=== PATIENT | female | born 1955 ===

== ENCOUNTER → 2022-09-08 12:40 | Outpatient (CLI) | payer OTHER, SELFPAY ==
[2022-09-08 14:22] LABS: Calcium 10.7 mg/dL (8.4-10.2); Estimated Glomerular Filt Rate > 60 mL/min (>60)
[2022-09-10 07:30] LABS: Parathyroid Hormone Int 91 pg/mL (15-65)
== END ==
PROVIDERS: PCP Family Medicine; Referring Provider Internal Medicine Endocrinology, Diabetes & Metabolism; Visit Provider Internal Medicine Endocrinology, Diabetes & Metabolism
DX: E21.3 Hyperparathyroidism, unspecified (principal)
CPT/HCPCS: 36415; 82310; 82565; 83970

== ENCOUNTER → 2022-09-10 11:26 | Outpatient (ROUT) | payer OTHER, SELFPAY ==
[2022-09-10 13:58] LABS: Collection Time Urine 24 Hours; Creatinine 24 Hour Urine 738 mg/day (800-1800); Creatinine Urine Random 56.8 mg/dL; Total Volume Urine 1300 mL
[2022-09-10 14:20] LABS: Calcium 24 Hour Urine 313 mg/day (100-300); Calcium Urine Random 24.1 mg/dL; Collection Time Urine 24 Hours; Total Volume Urine 1300 mL
== END ==
PROVIDERS: PCP Family Medicine; Visit Provider Internal Medicine Endocrinology, Diabetes & Metabolism
DX: E21.3 Hyperparathyroidism, unspecified (principal)
CPT/HCPCS: 82340; 82570

== ENCOUNTER → 2022-09-19 12:55 | Outpatient (CLI) | payer OTHER, SELFPAY ==
[2022-09-19 17:11] LABS: Thyroid Stimulating Hormone 0.326 uIU/mL (0.47-4.68)
== END ==
PROVIDERS: PCP Family Medicine; Referring Provider Internal Medicine Endocrinology, Diabetes & Metabolism; Visit Provider Internal Medicine Endocrinology, Diabetes & Metabolism
DX: E03.9 Hypothyroidism, unspecified (principal)
CPT/HCPCS: 36415; 84443

== ENCOUNTER 2023-04-26 05:11 | Emergency (ER) | payer OTHER, SELFPAY ==
[2023-04-26 05:26] VITALS: BP 135/83; PULSE 88; RESP 16; TEMP 36.2; O2SAT 95; BMI 31.7
--- NOTE | 2023-04-26 05:27 | ED.RECABL ---
HPI - Recheck/Abnormal Lab/Rx <Kathleen Riley DO - Last Filed: 04/28/23 07:29> General Chief Complaint: Recheck/Abnormal Lab/Rx Stated Complaint: neck area is swollen where she had surgery Time Seen by Provider: 04/26/23 05:18 History of Present Illness HPI narrative: Patient 67-year-old female history of hyperparathyroid presents today after parathyroidectomy done yesterday. It was done at an outpatient [place] facility. She reports that it hurts to swallow and having increasing pain and swelling. She is able to breathe and she is managing her own secretions. She took pain medicine last night but has not had any since she is woken. She reports that she really has not gotten much sleep. She says the anesthesia gave her steroids intraoperative lead to help with swelling but she feels like her neck is swollen and painful. Related Data Home Medications Medication Instructions Recorded Confirmed acetaminophen 500 mg tablet 1,000 mg PO BID PRN 11/22/22 03/03/23 bupropion HCl 100 mg tablet,12 hr 100 mg PO BEDTIME 11/22/22 03/03/23 sustained-release gabapentin 100 mg capsule 100 mg PO BID PRN 11/22/22 03/03/23 levothyroxine 100 mcg tablet 100 mcg PO DAILY 11/22/22 03/03/23 estradiol 10 mcg vaginal tablet 10 mcg vaginal 2XW 03/03/23 03/03/23 (Yuvafem) Allergies Allergy/AdvReac Type Severity Reaction Status Date / Time ciprofloxacin Allergy Intermediate Rash Verified 03/03/23 13:53 Penicillins Allergy Intermediate Hives Verified 03/03/23 13:53 Sulfa (Sulfonamide Allergy Intermediate Rash Verified 03/03/23 13:53 Antibiotics) betamethasone Allergy Mild Anxiety Verified 03/03/23 13:53 hydrocodone Allergy Mild Gastrointestinal Verified 03/03/23 13:53 Upset meloxicam Allergy Mild Gastrointestinal Verified 03/03/23 13:53 Upset sertraline Allergy Mild Nausea Verified 03/03/23 13:53 Patient History <Kathleen Riley DO - Last Filed: 04/28/23 07:29> Medical History Spinal stenosis, lumbar region with neurogenic claudication Tear meniscus knee Spondylolisthesis Spinal stenosis Depression Hypothyroidism Hyperparathyroidism High cholesterol Cervical disc disorder Arthritis Osteoporosis Surgical History Hx of appendectomy History of hernia surgery H/O knee surgery Social History Smoking Status: Former smoker Smoking Status: Former smoker Exam <Kathleen Riley DO - Last Filed: 04/28/23 07:29> Initial Vital Signs Initial Vital Signs: Vital Signs Temperature 97.1 F L 04/26/23 05:26 Pulse Rate 88 04/26/23 05:26 Respiratory Rate 16 04/26/23 05:26 Blood Pressure 135/83 04/26/23 05:26 Pulse Oximetry 95 04/26/23 05:26 Oxygen Delivery Method Room Air 04/26/23 05:26 GENERAL: Alert sleepy 67-year-old female HEENT: Head atraumatic,EOMI, pupils reactive, managing secretions with ease NECK: Incision site noted with Steri-Strips no erythema or oozing. She does have significant contusion anterior neck she is a little bit of swelling. Moving neck easily no evidence of meningitis CARDIOVASCULAR: Regular rate and rhythm without murmurs, rubs or gallops. RESPIRATORY: Breath sounds equal bilaterally, no wheezes rales or rhonchi. No stridor ABDOMEN: Soft, nontender. Normoactive bowel sounds all 4 quadrants. No guarding or rebound. EXTREMITIES: Normal range of motion, no clubbing or edema. Neurovascularly intact NEUROLOGICAL: Alert and oriented x4.Normal gait and speech. SKIN: Warm, dry, no laceration, no petechiae, no rashes or lesions. <An Pickard MD - Last Filed: 04/26/23 09:34> Initial Vital Signs Initial Vital Signs: Vital Signs Temperature 97.1 F L 04/26/23 05:26 Pulse Rate 88 04/26/23 05:26 Respiratory Rate 16 04/26/23 05:26 Blood Pressure 135/83 04/26/23 05:26 Pulse Oximetry 95 04/26/23 05:26 Oxygen Delivery Method Room Air 04/26/23 05:26 Course <Kathleen Riley DO - Last Filed: 04/28/23 07:29> Orders Ordered: Discontinued Medications Dexamethasone (Dexamethasone 10 Mg/Ml Vial) 10 mg IV NOW ONE Stop: 04/26/23 05:40 Last Admin: 04/26/23 05:50 Dose: 10 mg Documented By: NASIM Sodium Chloride (Normal Saline 0.9%) 1,000 mls @ 1,000 mls/hr IV BOLUS ONE Stop: 04/26/23 06:38 Last Infusion: 04/26/23 06:55 Dose: Infused Documented By: Admin: 04/26/23 05:49 Dose: 1,000 mls/hr Documented By: NASIM Acetaminophen (Ofirmev) 1,000 mg in 100 mls @ 400 mls/hr IV NOW ONE Stop: 04/26/23 07:03 Last Infusion: 04/26/23 07:15 Dose: Infused Documented By: Admin: 04/26/23 07:01 Dose: 400 mls/hr Documented By: NASIM Morphine Sulfate (Morphine 2 Mg/Ml Inj) 2 mg IV NOW ONE Stop: 04/26/23 05:40 Last Admin: 04/26/23 05:49 Dose: 2 mg Documented By: NASIM Ondansetron HCl (Ondansetron 4 Mg/2 Ml Inj) 4 mg IV NOW ONE Stop: 04/26/23 05:42 Last Admin: 04/26/23 05:50 Dose: 4 mg Documented By: NASIM Vital Signs Vital signs: Vital Signs - 8 hr 04/26/23 05:26 04/26/23 06:29 04/26/23 06:30 Temperature 97.1 F L Pulse Rate 88 76 77 Respiratory Rate 16 18 18 Blood Pressure 135/83 Pulse Oximetry 95 98 98 Oxygen Delivery Method Room Air 04/26/23 07:00 Temperature Pulse Rate 81 Respiratory Rate 18 Blood Pressure Pulse Oximetry 98 Oxygen Delivery Method <An Pickard MD - Last Filed: 04/26/23 09:34> Orders Ordered: Discontinued Medications Dexamethasone (Dexamethasone 10 Mg/Ml Vial) 10 mg IV NOW ONE Stop: 04/26/23 05:40 Last Admin: 04/26/23 05:50 Dose: 10 mg Documented By: NASIM Sodium Chloride (Normal Saline 0.9%) 1,000 mls @ 1,000 mls/hr IV BOLUS ONE Stop: 04/26/23 06:38 Last Infusion: 04/26/23 06:55 Dose: Infused Documented By: Admin: 04/26/23 05:49 Dose: 1,000 mls/hr Documented By: NASIM Acetaminophen (Ofirmev) 1,000 mg in 100 mls @ 400 mls/hr IV NOW ONE Stop: 04/26/23 07:03 Last Infusion: 04/26/23 07:15 Dose: Infused Documented By: Admin: 04/26/23 07:01 Dose: 400 mls/hr Documented By: NASIM Morphine Sulfate (Morphine 2 Mg/Ml Inj) 2 mg IV NOW ONE Stop: 04/26/23 05:40 Last Admin: 04/26/23 05:49 Dose: 2 mg Documented By: NASIM Ondansetron HCl (Ondansetron 4 Mg/2 Ml Inj) 4 mg IV NOW ONE Stop: 04/26/23 05:42 Last Admin: 04/26/23 05:50 Dose: 4 mg Documented By: NASIM Reevaluation(s) Reevaluation #1: Patient signed out to me by Dr. Riley at 0700. Patient resting comfortably in bed, swallowing water without any difficulty, no drooling, no pooling of secretions, voice normal per patient. CT imaging shows hematoma of the neck. Mild airway deviation noted. Call placed to patient's surgeon Dr. Ita Bullock, who personally reviewed the images. Patient's hematoma is superficial, however due to the size and anticipated length of healing she stated that she would take the patient to the OR for washout of the hematoma, and plans to keep her overnight in the observation unit to ensure that the hematoma does not reaccumulate. She was able to schedule an OR slot of 2:00 p.m. at the [facility]. Since there is no active extravasation, airway is intact, patient tolerating secretions without difficulty it is reasonable to send patient by private vehicle or ambulance if she prefers. Shared decision-making was had with patient and her friends at bedside, patient declines ambulance service and would prefer to go by private vehicle. She states that she is well aware of where the surgical center is and has other friends who can come to drive her down to [place]. She was counseled to keep the ice pack against her neck and to remain upright and have nothing to eat or drink until the surgery to prevent potential aspiration events. Vital Signs Vital signs: Vital Signs - 8 hr 04/26/23 05:26 04/26/23 06:29 04/26/23 06:30 Temperature 97.1 F L Pulse Rate 88 76 77 Respiratory Rate 16 18 18 Blood Pressure 135/83 Pulse Oximetry 95 98 98 Oxygen Delivery Method Room Air 04/26/23 07:00 Temperature Pulse Rate 81 Respiratory Rate 18 Blood Pressure Pulse Oximetry 98 Oxygen Delivery Method MDM - Recheck/Abnormal Lab/Rx <Kathleen Riley, - Last Filed: 04/28/23 07:29> Lab Data 04/26/23 05:44 04/26/23 05:44 Labs: Lab Results 04/26/23 Range/Units 05:44 WBC 9.9 (4.5-11.0) X10^3/uL RBC 3.58 L (4.0-5.2) X10^6/uL Hgb 10.1 L (12.0-16.0) g/dL Hct 29.8 L (36-46) % MCV 83.3 (80-100) fL MCH 28.2 (26-34) PG MCHC 33.8 (30-36) % RDW 14.8 (11.6-14.8) % Plt Count 282 (150-400) X10^3/uL Neut % (Auto) 84.8 H (50-75) % Lymph % (Auto) 6.9 L (25-40) % [place] % (Auto) 7.0 (3-14) % Eos % (Auto) 0.0 L (2-4) % Baso % (Auto) 1.3 (0-2) % Neut # (Auto) 8400 H (3833-5688) /uL Lymph # (Auto) 700 L (2793-3808) /uL [place] # (Auto) 700 (0-900) /uL Eos # (Auto) 0 (0-450) /uL Baso # (Auto) 100 (0-100) /uL Sodium 134 L (137-145) mmol/L Potassium 4.2 (3.4-5.1) mmol/L Chloride 101 (98-107) mmol/L Carbon Dioxide 23 (22-32) mmol/L BUN 14 (7-17) mg/dL Creatinine 0.53 (0.52-1.04) mg/dL Estimated GFR > 60 (>60) mL/min BUN/Creatinine Ratio 26.4 H (6-22) Glucose 133 H (80-110) mg/dL Calcium 9.0 (8.4-10.2) mg/dL Total Bilirubin 0.4 (0.2-1.3) mg/dL AST 24 (14-36) IU/L ALT 19 (<35) IU/L Alkaline Phosphatase 86 (38-126) U/L Total Protein 6.5 (6.3-8.2) g/dL Albumin 4.0 (3.5-5.0) g/dL Globulin 2.5 (1.7-4.1) g/dL Albumin/Globulin Ratio 1.6 (1.0-2.8) MDM Narrative Medical decision making narrative: Patient is 67-year-old female with recent parathyroidectomy presenting with neck swelling and pain. She has no difficulty swallowing or respiratory distress. He does have some anterior neck swelling and contusion. She is given pain medication and dexamethasone. Blood work has been reviewed overall reassuring. CT is pending. Patient signed out to Dr. Pickard <An Pickard MD - Last Filed: 04/26/23 09:34> Differential Diagnosis Differential diagnosis: Likely encounter for wound recheck, encounter for removal of sutures and warfarin-induced coagulopathy Lab Data Labs: Lab Results 04/26/23 Range/Units 05:44 WBC 9.9 (4.5-11.0) X10^3/uL RBC 3.58 L (4.0-5.2) X10^6/uL Hgb 10.1 L (12.0-16.0) g/dL Hct 29.8 L (36-46) % MCV 83.3 (80-100) fL MCH 28.2 (26-34) PG MCHC 33.8 (30-36) % RDW 14.8 (11.6-14.8) % Plt Count 282 (150-400) X10^3/uL Neut % (Auto) 84.8 H (50-75) % Lymph % (Auto) 6.9 L (25-40) % [place] % (Auto) 7.0 (3-14) % Eos % (Auto) 0.0 L (2-4) % Baso % (Auto) 1.3 (0-2) % Neut # (Auto) 8400 H (1256-4561) /uL Lymph # (Auto) 700 L (9959-4452) /uL [place] # (Auto) 700 (0-900) /uL Eos # (Auto) 0 (0-450) /uL Baso # (Auto) 100 (0-100) /uL Sodium 134 L (137-145) mmol/L Potassium 4.2 (3.4-5.1) mmol/L Chloride 101 (98-107) mmol/L Carbon Dioxide 23 (22-32) mmol/L BUN 14 (7-17) mg/dL Creatinine 0.53 (0.52-1.04) mg/dL Estimated GFR > 60 (>60) mL/min BUN/Creatinine Ratio 26.4 H (6-22) Glucose 133 H (80-110) mg/dL Calcium 9.0 (8.4-10.2) mg/dL Total Bilirubin 0.4 (0.2-1.3) mg/dL AST 24 (14-36) IU/L ALT 19 (<35) IU/L Alkaline Phosphatase 86 (38-126) U/L Total Protein 6.5 (6.3-8.2) g/dL Albumin 4.0 (3.5-5.0) g/dL Globulin 2.5 (1.7-4.1) g/dL Albumin/Globulin Ratio 1.6 (1.0-2.8) Discharge Plan Departure Patient Disposition: Home Clinical Impression: Spondylolisthesis Postoperative hematoma Qualifiers: Surgical complication system/body Area: endocrine system Procedure type: endocrine system Qualified Code(s): E89.820 - Postprocedural hematoma of an endocrine system organ or structure following an endocrine system procedure Instructions: DI for Hematoma (Bruise) Activity Restrictions/Additional Instructions: GO STRAIGHT TO THE SAME SURGICAL CENTER YOU CHECKED INTO YESTERDAY Prescriptions: No Action estradiol [Yuvafem] 10 mcg tablet 10 mcg vaginal 2XW levothyroxine 100 mcg tablet 100 mcg PO DAILY gabapentin 100 mg capsule 100 mg PO BID PRN bupropion HCl 100 mg tablet sustained-release 12 hr 100 mg PO BEDTIME acetaminophen 500 mg tablet 1,000 mg PO BID PRN Referrals: Yvette Cr MD [Primary Care Provider] - Stand Alone Forms: Patient Portal/API
[2023-04-26] MEDS: MORPHINE 2 MG/ML INJ IV (05:49)
[2023-04-26] MEDS: SODIUM CHLORIDE 0.9% 1,000 ML 1000 ML IV (05:49)
[2023-04-26] MEDS: DEXAMETHASONE 10 MG/ML VIAL IV (05:50)
[2023-04-26] MEDS: ONDANSETRON 4 MG/2 ML INJ IV (05:50)
[2023-04-26 05:54] LABS: Add Manual Diff / Slide Review NO; Basophils Absolute Auto 100 /uL (0-100); Basophils Percent Auto 1.3 % (0-2); Eosinophils Absolute Auto 0 /uL (0-450); Hematocrit 29.8 % (36-46); Hemoglobin 10.1 g/dL (12.0-16.0); Lymphocytes Absolute Auto 700 /uL (1100-4500); Lymphocytes Percent Auto 6.9 % (25-40); Mean Corpuscular HGB Conc 33.8 % (30-36); Mean Corpuscular Hemoglobin 28.2 PG (26-34); Mean Corpuscular Volume 83.3 fL (80-100); Monocytes Absolute Auto 700 /uL (0-900); Neutrophils Absolute Auto 8400 /uL (1500-7000); Neutrophils Percent Auto 84.8 % (50-75); Platelet Count 282 X10^3/uL (150-400); Red Blood Cell Count 3.58 X10^6/uL (4.0-5.2); Red Cell Distribution Width 14.8 % (11.6-14.8); White Blood Cell Count 9.9 X10^3/uL (4.5-11.0)
[2023-04-26 05:59] LABS: Alanine Aminotransferase 19 IU/L (<35); Albumin Globulin Ratio 1.6 (1.0-2.8); Alkaline Phosphatase 86 U/L (38-126); Aspartate Aminotransferase 24 IU/L (14-36); BUN Creatinine Ratio 26.4 (6-22); Bilirubin Total 0.4 mg/dL (0.2-1.3); Blood Urea Nitrogen 14 mg/dL (7-17); Carbon Dioxide 23 mmol/L (22-32); Chloride 101 mmol/L (98-107); Estimated Glomerular Filt Rate > 60 mL/min (>60); Globulin 2.5 g/dL (1.7-4.1); Glucose 133 mg/dL (80-110); HEMOLYSIS < 15 (0-50); Potassium 4.2 mmol/L (3.4-5.1); Sodium 134 mmol/L (137-145); Total Protein 6.5 g/dL (6.3-8.2)
[2023-04-26 06:29] VITALS: PULSE 76; RESP 18; O2SAT 98
[2023-04-26 06:30] VITALS: PULSE 77; RESP 18; O2SAT 98
--- NOTE | 2023-04-26 06:54 | DI.CT.S_ITS ---
PROCEDURE: CT SOFT TISSUE NECK W CON INDICATIONS: post parathyroidectomy swelling yesterday TECHNIQUE: After the administration of intravenous contrast, 3.0 mm axial sections acquired from the sella to the aortic arch. Additional oblique axial 3.0 mm sections acquired through the pharynx. 3 mm thick coronal and sagittal reformats were generated. For radiation dose reduction, the following was used: automated exposure control. COMPARISON: None. FINDINGS: Image quality: Excellent. Lymph nodes: No enlarged lymph nodes seen throughout the neck. Vessels: Visualized vasculature appears patent. Neck spaces: The oropharynx, nasopharynx, and pharynx demonstrate no mucosal lesions. The vocal cords, false vocal cords, pyriform sinuses, epiglottis, vallecula, and tongue base all appear normal. There are extensive inflammatory changes with subcutaneous emphysema within the neck and mediastinum. No peripherally enhancing fluid collections to suggest abscess are seen at this time. There is a high attenuation structure posterior to the left lobe of thyroid gland measuring 3.6 x 2.8 x 4.3 centimeters and measuring 60 Hounsfield units, likely representing a hematoma at the surgical site. There is mass effect the trachea with slight deviation to the right. The airway otherwise remains patent. Significant fluid extending superiorly along the retropharyngeal space without organized fluid collection. Glands: The parotid and submandibular glands appear normal. Thyroid gland is heterogeneous with adjacent postsurgical changes. Miscellaneous: Visualized brain and orbits appear normal. Lung apices appear clear. Superficial soft tissues appear normal. Bones: No suspicious bony lesions. Mild degenerative changes of the spine. Visualized sinuses and mastoids appear unremarkable. IMPRESSION: Extensive inflammatory changes with fluid and subcutaneous emphysema within the neck extending into the mediastinum and retropharyngeal spaces. There is a high attenuation structure adjacent to left lobe of the thyroid measuring up to 4.3 centimeters, likely representing hematoma the surgical site. No findings to suggest abscess at this time. Findings are concordant with preliminary interpretation provided by [facility]. Dictated by: Delmar Saxena M.D. on 04/26/2023 at 8:24 Approved by: Delmar Saxnea M.D. on 04/26/2023 at 8:28
[2023-04-26 07:00] VITALS: PULSE 81; RESP 18; O2SAT 98
[2023-04-26] MEDS: ACETAMINOPHEN IV 1,000 MG/100 ML VIAL 400 MG IV (07:01)
== END 2023-04-26 11:10 | disposition home or self-care (01) ==
PROVIDERS: Emergency Medicine; Emergency Provider Emergency Medicine; PCP Family Medicine
DX: E89.820 Postprocedural hematoma of an endocrine system organ or structure following an endocrine system procedure (principal); M43.10 Spondylolisthesis, site unspecified
CPT/HCPCS: 36415; 70491; 80053; 85025; 96361; 96374; 96375; 99284; J0131; J1100; J2270; J2405; Q9967

== ENCOUNTER → 2023-05-01 10:45 | Outpatient (CLI) | payer OTHER, SELFPAY ==
[2023-05-01 11:53] LABS: Calcium 9.5 mg/dL (8.4-10.2)
== END ==
PROVIDERS: PCP Family Medicine; Referring Provider Surgery; Visit Provider Surgery
DX: E21.3 Hyperparathyroidism, unspecified (principal)
CPT/HCPCS: 36415; 82310

== ENCOUNTER → 2023-05-05 12:01 | Outpatient (CLI) | payer OTHER, SELFPAY ==
[2023-05-05 13:38] LABS: Calcium 9.4 mg/dL (8.4-10.2)
== END ==
PROVIDERS: PCP Family Medicine; Referring Provider Surgery; Visit Provider Surgery
DX: E89.2 Postprocedural hypoparathyroidism (principal)
CPT/HCPCS: 36415; 82310

== ENCOUNTER → 2023-06-05 14:38 | Outpatient (CLI) | payer OTHER, SELFPAY ==
[2023-06-05 15:42] LABS: Calcium 9.7 mg/dL (8.4-10.2)
== END ==
PROVIDERS: PCP Family Medicine; Referring Provider Physician Assistant; Visit Provider Physician Assistant
DX: E89.2 Postprocedural hypoparathyroidism (principal)
CPT/HCPCS: 36415; 82310

== ENCOUNTER → 2023-07-31 14:30 | Outpatient (CLI) | payer OTHER, SELFPAY ==
[2023-07-31 16:00] LABS: Thyroid Stimulating Hormone 0.738 uIU/mL (0.47-4.68)
== END ==
PROVIDERS: PCP Family Medicine; Referring Provider Internal Medicine Endocrinology, Diabetes & Metabolism; Visit Provider Internal Medicine Endocrinology, Diabetes & Metabolism
DX: E03.9 Hypothyroidism, unspecified (principal)
CPT/HCPCS: 36415; 84439; 84443

== ENCOUNTER → 2023-08-04 12:57 | Outpatient (CLI) | payer OTHER, SELFPAY ==
--- NOTE | 2023-08-04 | DI.MG.S_ITS ---
BILATERAL DIGITAL SCREENING MAMMOGRAM 3D/2D WITH CAD: 08/04/2023 CLINICAL: Routine screening. Family history of breast cancer. Comparison is made to exams dated: 07/27/2022 mammogram - [facility], 05/24/2021 mammogram, and 04/29/2020 mammogram - [facility]. Both breasts are heterogeneously dense, which may obscure small masses (category c / 51-75% glandular tissue). Current study was also evaluated with a Computer Aided Detection (CAD) system. No significant masses, calcifications, or other findings are seen in either breast. There has been no significant interval change. IMPRESSION: NEGATIVE There is no mammographic evidence of malignancy. A 1 year screening mammogram is recommended. Based on the Tyrer Cuzick model (a risk assessment model) the patient's lifetime risk is 16.5% and her 10 year risk is 10.0%. According to the ACR, ACS, and NCCN guidelines, an annual breast MRI exam along with mammogram is recommended if the patient's lifetime risk is 20% or greater. This exam was interpreted at Station ID: [id number]. NOTE: For mammograms, a report in lay terms will be sent to the patient. Approximately 15% of breast malignancies will not be visualized mammographically. In the management of a palpable breast mass, a negative mammogram must not discourage biopsy of a clinically suspicious lesion. Electronically Signed By: Raf hurtado/sherri:08/07/2023 10:25:09 letter sent: Normal Exam ACR BI-RADS Category 1: Negative [id number]
--- NOTE | 2023-08-04 13:00 | DI.CT.S_ITS ---
PROCEDURE: CT LUMBAR SPINE WO CON INDICATIONS: Routine screening Idiopathic scoliosis, lumbar reg TECHNIQUE: Noncontrast 3 mm thick sections acquired from the T12 level to the sacrum. Sagittal and coronal reformats were constructed. For radiation dose reduction, the following was used: automated exposure control. COMPARISON: None. FINDINGS: Image quality: Excellent. Bones: Grade 1 anterior spondylolisthesis degenerative L4-5. Multilevel sclerotic degenerative endplate noted.. No acute vertebral body compression fractures. No suspicious lytic or blastic bony lesions. No pars defects. T12-L1: Unremarkable L1-L2: Unremarkable L2-L3: Disc space narrowing and sclerotic endplates. Disc bulge with mild central stenosis. Severe right and moderate left foraminal stenosis L3-L4: Disc space narrowing with circumferential disc bulge and ligamentum flavum laxity combines with hypertrophic facet joints results in moderate central stenosis. Moderate bilateral foraminal stenosis L4-L5: A disc space narrowing with disc bulge, hypertrophic facet joints and degenerative anterior spondylolisthesis associated with severe central stenosis. Severe bilateral foraminal stenosis. L5-S1: Disc space narrowing with disc bulge. Mild central stenosis. Moderate bilateral foraminal stenosis Soft tissues: No retroperitoneal masses or hematomas. Visualized aorta is normal in caliber. IMPRESSION: Multilevel degenerative disc disease and arthropathy results in varying degrees of central and foraminal stenosis including severe central and bilateral foraminal stenosis at L4-5 Approved by: Marshall Garcia M.D. on 08/04/2023 at 18:15
== END ==
PROVIDERS: PCP Family Medicine
DX: Z12.31 Encounter for screening mammogram for malignant neoplasm of breast (principal); Z80.3 Family history of malignant neoplasm of breast; R92.333 Mammographic heterogeneous density, bilateral breasts; M41.26 Other idiopathic scoliosis, lumbar region; M51.36 Other intervertebral disc degeneration, lumbar region; M51.37 Other intervertebral disc degeneration, lumbosacral region; M47.816 Spondylosis without myelopathy or radiculopathy, lumbar region; M48.061 Spinal stenosis, lumbar region without neurogenic claudication; M48.07 Spinal stenosis, lumbosacral region
CPT/HCPCS: 72131; 77063; 77067

== ENCOUNTER → 2023-09-05 13:48 | Outpatient (CLI) | payer OTHER, SELFPAY ==
[2023-09-05 14:14] LABS: Estimated Glomerular Filt Rate > 60 mL/min (>60)
== END ==
LOC: LAB 13:49
PROVIDERS: Radiology Diagnostic Radiology; PCP Family Medicine; Referring Provider Surgery Vascular Surgery; Visit Provider Surgery Vascular Surgery
DX: I72.3 Aneurysm of iliac artery (principal)
CPT/HCPCS: 36415; 82565

== ENCOUNTER → 2023-09-08 11:44 | Outpatient (CLI) | payer OTHER, SELFPAY ==
--- NOTE | 2023-09-08 11:45 | DI.CT.S_ITS ---
PROCEDURE: CT ANGIO ABDOMEN PELVIS INDICATIONS: aortic aneurysm surveillance TECHNIQUE: After the administration of intravenous contrast, 2.5 mm thick sections acquired from the diaphragm to the symphysis. 10 mm maximum-intensity projection (MIP) reformats were then acquired. For radiation dose reduction, the following was used: automated exposure control. COMPARISON: None. FINDINGS: Image Quality: Diagnostic. Arterial phase imaging limits evaluation of the visceral organs. Abdominal aorta: No aortic aneurysm or evidence of acute aortic syndrome. Distal abdominal aorta and iliac vessels are tortuous. No significant atherosclerotic plaque. Borderline ectasia of the left common iliac artery measuring 1.5 cm (4/116). Visualized lumbar vessels are patent with no aneurysm. Mesenteric arteries: Celiac artery, SMA and VARSHA are patent with no stenosis. There is no evidence of a visceral aneurysm. Renal arteries: Bilateral renal arteries are patent with no stenosis or aneurysm. OTHER: Lower Chest: Bilateral lower lobe atelectasis. No focal pulmonary nodule or consolidation. Liver: No solid mass. Gallbladder: No radiopaque gallstones or wall thickening. Biliary ducts: No biliary dilation. Pancreas: No ductal dilation. Spleen: Size is within normal limits. Adrenal Glands: No adrenal nodules. Kidneys and Ureters: No hydronephrosis. No solid mass. No complex renal cystic lesion which requires follow up. Stomach and Bowel: Normal colonic caliber, without significant wall thickening. Above average colonic stool burden. Peritoneum: No abnormal intraperitoneal fluid. No free air. Ventral Wall: No hernia. Abdominal Nodes: No retroperitoneal or mesenteric adenopathy by size criteria. Vessels: Aorta and inferior vena cava are normal in size. PELVIS: Pelvic Organs: Unremarkable. Bladder: Unremarkable. Pelvic Nodes: No enlarged lymph nodes. Miscellaneous: No inguinal hernias are seen. Bones: No aggressive osseous abnormality. No acute fracture. Grade 1 anterolisthesis of L4 on L5. Moderate to severe multilevel degenerative changes of the spine. IMPRESSION: 1. No abdominal aortic aneurysm or visceral aneurysm. Visualized lumbar vessels are patent with no aneurysm. 2. Borderline ectasia of the left common iliac artery measuring 1.5 cm. 3. Above average colonic stool burden, suggestive of constipation. 4. Multilevel degenerative changes of the spine with grade 1 anterolisthesis of L4 on L5. Please see CT lumbar spine dated August 04, 2023 for additional findings. Dictated by: Ruthie Davis M.D. on 09/08/2023 at 17:41 Approved by: Ruthie Davis M.D. on 09/08/2023 at 17:47
== END ==
PROVIDERS: PCP Family Medicine; Referring Provider Surgery Vascular Surgery; Visit Provider Surgery Vascular Surgery
DX: I72.3 Aneurysm of iliac artery (principal); M47.816 Spondylosis without myelopathy or radiculopathy, lumbar region; M43.16 Spondylolisthesis, lumbar region
CPT/HCPCS: 74174; Q9967

== ENCOUNTER 2024-01-24 15:28 | Emergency (ER) | payer OTHER, SELFPAY ==
[2024-01-24] VITALS (13 sets, daily range): BP systolic 117–138; BP diastolic 65–82; PULSE 77–85; RESP 17–28; TEMP 36.4–37.3; O2SAT 95–99; BMI 30.2
--- NOTE | 2024-01-24 15:40 | DI.RAD.S_ITS ---
PROCEDURE: XR CHEST 1V INDICATIONS: chest pain TECHNIQUE: One view of the chest was acquired. COMPARISON: None. FINDINGS: Surgical changes and devices: Lumbar fusion hardware is present Lungs and pleura: Lungs are clear. No pleural effusions or pneumothorax. Mediastinum: Mediastinal contours appear normal. Heart size is normal. Bones and chest wall: No suspicious bony lesions. Overlying soft tissues appear unremarkable. IMPRESSION: No acute cardiopulmonary abnormality is seen. Dictated by: Magui Regan M.D. on 01/24/2024 at 16:43 Approved by: Magui Regan M.D. on 01/24/2024 at 16:44
[2024-01-24 16:08] LABS: Add Manual Diff / Slide Review NO; Basophils Absolute Auto 100 /uL (0-100); Basophils Percent Auto 1.3 % (0-2); Eosinophils Absolute Auto 400 /uL (0-450); Eosinophils Percent Auto 6.7 % (2-4); Hematocrit 32.9 % (36-46); Hemoglobin 10.8 g/dL (12.0-16.0); Lymphocytes Absolute Auto 1100 /uL (1100-4500); Lymphocytes Percent Auto 18.7 % (25-40); Mean Corpuscular HGB Conc 32.8 % (30-36); Mean Corpuscular Hemoglobin 28.3 PG (26-34); Mean Corpuscular Volume 86.3 fL (80-100); Monocytes Absolute Auto 500 /uL (0-900); Monocytes Percent Auto 8.3 % (3-14); Neutrophils Absolute Auto 3900 /uL (1500-7000); Platelet Count 564 X10^3/uL (150-400); Red Blood Cell Count 3.81 X10^6/uL (4.0-5.2); White Blood Cell Count 5.9 X10^3/uL (4.5-11.0)
--- NOTE | 2024-01-24 16:11 | EKG_ITS ---
[place] [id number] [place] [id number] Test Date: 2024-01-24 Pat Name: Sarah Mckeon Department: [facility] Room: Gender: Female [employer] Tender: FARA : 1955 Requested By: Order Number: [id number] Reading MD: Jose Hart Measurements Intervals [place] Rate: 83 P: 32 PA: 180 QRS: 0 QRSD: 80 T: 34 QT: 366 QTc: 430 Interpretive Statements Normal sinus rhythm Anterior infarct , age undetermined Electronically Signed On 01-25-2024 8:36:08 PDT by Jose Hart
[2024-01-24 16:14] LABS: Prothrombin Time 11.9 SECONDS (9.4-12.5)
[2024-01-24 16:17] LABS: PTT Partial Thromboplastin Tim 48 SECONDS (25.1-36.5)
[2024-01-24 16:18] LABS: Alanine Aminotransferase 17 IU/L (<35); Albumin 4.1 g/dL (3.5-5.0); Albumin Globulin Ratio 1.6 (1.0-2.8); Alkaline Phosphatase 138 U/L (38-126); Aspartate Aminotransferase 25 IU/L (14-36); BUN Creatinine Ratio 23.5 (6-22); Bilirubin Total 0.4 mg/dL (0.2-1.3); Blood Urea Nitrogen 12 mg/dL (7-17); Calcium 8.8 mg/dL (8.4-10.2); Carbon Dioxide 28 mmol/L (22-32); Chloride 105 mmol/L (98-107); Creatine Kinase 87 U/L (30-135); Estimated Glomerular Filt Rate > 60 mL/min (>60); Globulin 2.6 g/dL (1.7-4.1); Glucose 99 mg/dL (80-110); HEMOLYSIS 18 (0-50); Lipase 58 U/L (23-300); Magnesium 2.1 mg/dL (1.6-2.3); Sodium 137 mmol/L (137-145); Total Protein 6.7 g/dL (6.3-8.2)
[2024-01-24] MEDS: ASPIRIN 81 MG CHEW TAB 324 MG PO (16:24)
[2024-01-24 16:29] LABS: NT-proBNP (BNP-Adult 18+) 43 pg/mL (<125)
[2024-01-24 16:30] LABS: Troponin I < 0.012 ng/mL (0.01-0.034)
[2024-01-24 16:43] LABS: D Dimer 2118 ng/ml (<500)
--- NOTE | 2024-01-24 17:04 | DI.CT.S_ITS ---
PROCEDURE: CT ANGIO CHEST PE PROTOCOL INDICATIONS: chest pain / sob/ + dimer/recent hospitalization TECHNIQUE: After the administration of intravenous contrast, 2 mm thick sections acquired from the pulmonary apices to the posterior costophrenic angles. 3-dimensional maximum intensity projection (MIP) coronal and sagittal reformats were then acquired through the thorax. For radiation dose reduction, the following was used: automated exposure control, adjustment of mA and/or kV according to patient size. COMPARISON: [facility], CT, CT ANGIO ABDOMEN PELVIS, 09/08/2023, 11:55. FINDINGS: Image quality: Diagnostic. Pulmonary arteries: Pulmonary arteries are normal in size, and demonstrate no intraluminal filling defects to suggest central pulmonary embolism. Lower Neck: No enlarged lymph nodes. Thyroid: No thyroid nodules which require sonographic follow up, per consensus guidelines. Axillae: No enlarged lymph nodes. Chest Wall: Unremarkable. Bones: No suspicious osseous lesion. Lower spine hardware. Multilevel DDD. Scoliosis. Subchondral cystic change at the left glenohumeral joint. Lungs and Pleura: No pneumothorax or pleural effusions. No consolidation or suspicious nodules. Bibasilar atelectasis. Heart: Heart size is normal. Small pericardial effusion. Thoracic Vessels: No aortic aneurysm. Mediastinum and [place]: No enlarged lymph nodes. Esophagus: No wall thickening. Tiny hiatal hernia. Upper Abdomen: Small hypodensities in the liver are again seen. Suspect a hemangioma and a cyst. Prominent stool in the colon. IMPRESSION: 1. No pulmonary embolism. 2. No acute airspace opacity. Dictated by: Isrrael Mayorga M.D. on 01/24/2024 at 18:09 Approved by: Isrrael Mayorga M.D. on 01/24/2024 at 18:16
[2024-01-24] MEDS: SODIUM CHLORIDE 0.9% 500 ML 1000 ML IV (17:46)
--- NOTE | 2024-01-24 19:36 | PC.NURSE ---
IV placed by another nurse
--- NOTE | 2024-01-24 20:11 | ED.CHESTPAIN ---
HPI - Chest Pain General Chief Complaint: Chest Pain Stated Complaint: chest px Time Seen by Provider: 01/24/24 19:58 Source: patient Mode of arrival: Ambulatory History of Present Illness HPI narrative: Patient is 68-year-old female history of hypothyroid recent back surgery about 3 weeks ago. She reports that she was admitted at [facility] for to 9 hour back surgeries. She reports that she got some subcutaneous heparin while in the hospital but then started refusing the shots because it was giving her bruise. She reports that she was moving around it did not feel like she needed them. Today she presents with chest discomfort. She reports a band in her upper epigastric area that radiated through to her back. She reports that it started while she was talking on the phone to a friend. It lasted for about 45 minutes and has since resolved. She denies any shortness of breath no known coronary artery disease. Related Data Home Medications Medication Instructions Recorded Confirmed acetaminophen 500 mg tablet 1,000 mg PO BID PRN 11/22/22 05/23/23 bupropion HCl 100 mg tablet,12 hr 100 mg PO BEDTIME 11/22/22 05/23/23 sustained-release gabapentin 100 mg capsule 100 mg PO BID PRN 11/22/22 05/23/23 levothyroxine 100 mcg tablet 100 mcg PO DAILY 11/22/22 05/23/23 estradiol 10 mcg vaginal tablet 10 mcg vaginal 2XW 03/03/23 05/23/23 (Yuvafem) Allergies Allergy/AdvReac Type Severity Reaction Status Date / Time ciprofloxacin Allergy Intermediate Rash Verified 01/24/24 15:42 Penicillins Allergy Intermediate Hives Verified 01/24/24 15:42 Sulfa (Sulfonamide Allergy Intermediate Rash Verified 01/24/24 15:42 Antibiotics) betamethasone Allergy Mild Anxiety Verified 01/24/24 15:42 hydrocodone Allergy Mild Gastrointestinal Verified 01/24/24 15:42 Upset meloxicam Allergy Mild Gastrointestinal Verified 01/24/24 15:42 Upset sertraline Allergy Mild Nausea Verified 01/24/24 15:42 Patient History Medical History Spinal stenosis, lumbar region with neurogenic claudication Tear meniscus knee Spondylolisthesis Spinal stenosis Depression Hypothyroidism Hyperparathyroidism High cholesterol Cervical disc disorder Arthritis Osteoporosis Surgical History Hx of appendectomy History of hernia surgery H/O knee surgery Social History Smoking Status: Former smoker Smoking Status: Former smoker alcohol intake frequency: holidays/special occasions only Substance Use Type: does not use Exam Initial Vital Signs Initial Vital Signs: Vital Signs Temperature 97.5 F L 01/24/24 15:32 Pulse Rate 85 01/24/24 15:32 Respiratory Rate 18 01/24/24 15:32 Blood Pressure 132/79 01/24/24 15:32 Pulse Oximetry 98 01/24/24 15:32 Oxygen Delivery Method Room Air 01/24/24 15:32 GENERAL: Alert pleasant 68-year-old female and in no acute distress. HEENT: Head atraumatic,EOMI, pupils reactive, face symmetric, moist mucous membranes CARDIOVASCULAR: Regular rate and rhythm without murmurs, rubs or gallops. RESPIRATORY: Breath sounds equal bilaterally, no wheezes rales or rhonchi. ABDOMEN: Soft, nontender. Normoactive bowel sounds all 4 quadrants. No guarding or rebound. EXTREMITIES: Normal range of motion, no clubbing or edema. Neurovascularly intact NEUROLOGICAL: Alert and oriented x4.Normal gait and speech. Cranial nerves II through XII grossly intact. SKIN: Warm, dry, no laceration, no petechiae, no rashes or lesions. Scores HEART Score Heart Score history: Slightly Suspicious Heart Score EKG: Normal Heart Score Age: > or = 65 years old Heart Score risk factors: No known risk factors Heart Score troponin: < or = to normal limit Heart Score Total: 2 Course Orders Ordered: ED Orders 01/24/24 19:47 Troponin I Stat Discontinued Medications Acetaminophen (Acetaminophen 325 Mg Tablet) 975 mg PO NOW ONE Stop: 01/24/24 16:19 Last Admin: 01/24/24 16:30 Dose: Not Given Documented By: TARYN Aspirin (Aspirin 81 Mg Chew Tab) 324 mg PO NOW ONE Stop: 01/24/24 15:41 Last Admin: 01/24/24 16:24 Dose: 324 mg Documented By: TARYN Sodium Chloride (Normal Saline 0.9%) 500 mls @ 1,000 mls/hr IV BOLUS ONE Stop: 01/24/24 17:32 Last Infusion: 07/31/24 18:53 Dose: Infused Documented By: Admin: 01/24/24 17:46 Dose: 1,000 mls/hr Documented By: BRENNAN Vital Signs Vital signs: Vital Signs - 8 hr 01/24/24 20:00 01/24/24 20:00 01/24/24 20:30 Temperature Pulse Rate 78 82 Respiratory Rate 18 Blood Pressure 121/70 Pulse Oximetry 96 97 Oxygen Delivery Method 01/24/24 20:32 01/24/24 20:32 Temperature 99.1 F Pulse Rate 80 Respiratory Rate 26 H Blood Pressure 121/67 Pulse Oximetry 96 Oxygen Delivery Method Room Air MDM - Chest Pain Lab Data 01/24/24 15:57 01/24/24 15:57 Labs: Lab Results 01/24/24 01/24/24 Range/Units 15:57 19:47 WBC 5.9 (4.5-11.0) X10^3/uL RBC 3.81 L (4.0-5.2) X10^6/uL Hgb 10.8 L (12.0-16.0) g/dL Hct 32.9 L (36-46) % MCV 86.3 (80-100) fL MCH 28.3 (26-34) PG MCHC 32.8 (30-36) % RDW 18.0 H (11.6-14.8) % Plt Count 564 H (150-400) X10^3/uL Neut % (Auto) 65.0 (50-75) % Lymph % (Auto) 18.7 L (25-40) % Sharkey % (Auto) 8.3 (3-14) % Eos % (Auto) 6.7 H (2-4) % Baso % (Auto) 1.3 (0-2) % Neut # (Auto) 3900 (1120-2524) /uL Lymph # (Auto) 1100 (1452-1666) /uL Sharkey # (Auto) 500 (0-900) /uL Eos # (Auto) 400 (0-450) /uL Baso # (Auto) 100 (0-100) /uL PT 11.9 (9.4-12.5) SECONDS INR 1.0 (0.9-1.3) APTT 48 H (25.1-36.5) SECONDS D-Dimer 2118 H (<500) ng/ml Sodium 137 (137-145) mmol/L Potassium 4.0 (3.4-5.1) mmol/L Chloride 105 (98-107) mmol/L Carbon Dioxide 28 (22-32) mmol/L BUN 12 (7-17) mg/dL Creatinine 0.51 L (0.52-1.04) mg/dL Estimated GFR > 60 (>60) mL/min BUN/Creatinine Ratio 23.5 H (6-22) Glucose 99 (80-110) mg/dL Calcium 8.8 (8.4-10.2) mg/dL Magnesium 2.1 (1.6-2.3) mg/dL Total Bilirubin 0.4 (0.2-1.3) mg/dL AST 25 (14-36) IU/L ALT 17 (<35) IU/L Alkaline Phosphatase 138 H (38-126) U/L Total Creatine Kinase 87 (30-135) U/L Troponin I < 0.012 < 0.012 (0.01-0.034) ng/mL NT-Pro-B Natriuret Pep 43 (<125) pg/mL Total Protein 6.7 (6.3-8.2) g/dL Albumin 4.1 (3.5-5.0) g/dL Globulin 2.6 (1.7-4.1) g/dL Albumin/Globulin Ratio 1.6 (1.0-2.8) Lipase 58 (23-300) U/L Imaging Data CT scan - chest: Radiologist's Impression: PROCEDURE: CT ANGIO CHEST PE PROTOCOL INDICATIONS: chest pain / sob/ + dimer/recent hospitalization TECHNIQUE: After the administration of intravenous contrast, 2 mm thick sections acquired from the pulmonary apices to the posterior costophrenic angles. 3-dimensional maximum intensity projection (MIP) coronal and sagittal reformats were then acquired through the thorax. For radiation dose reduction, the following was used: automated exposure control, adjustment of mA and/or kV according to patient size. COMPARISON: [facility], CT, CT ANGIO ABDOMEN PELVIS, 09/08/2023, 11:55. FINDINGS: Image quality: Diagnostic. Pulmonary arteries: Pulmonary arteries are normal in size, and demonstrate no intraluminal filling defects to suggest central pulmonary embolism. Lower Neck: No enlarged lymph nodes. Thyroid: No thyroid nodules which require sonographic follow up, per consensus guidelines. Axillae: No enlarged lymph nodes. Chest Wall: Unremarkable. Bones: No suspicious osseous lesion. Lower spine hardware. Multilevel DDD. Scoliosis. Subchondral cystic change at the left glenohumeral joint. Lungs and Pleura: No pneumothorax or pleural effusions. No consolidation or suspicious nodules. Bibasilar atelectasis. Heart: Heart size is normal. Small pericardial effusion. Thoracic Vessels: No aortic aneurysm. Mediastinum and Geetha: No enlarged lymph nodes. Esophagus: No wall thickening. Tiny hiatal hernia. Upper Abdomen: Small hypodensities in the liver are again seen. Suspect a hemangioma and a cyst. Prominent stool in the colon. IMPRESSION: 1. No pulmonary embolism. 2. No acute airspace opacity. Dictated by: Isrrael Mayorga M.D. on 01/24/2024 at 18:09 Approved by: Isrrael Mayorga M.D. on 01/24/2024 at 18:16 ECG Data Attestation: I personally reviewed and interpreted this ECG as follows: Interpretation: Normal sinus rhythm rate 83 MD interval 180 QRS 80 QTC 430 Q-wave noted in lead [address] changes MDM Narrative Medical decision making narrative: Patient is 68-year-old female presents today with chest pain 45 minutes radiating to her back. She has no known coronary artery disease she has a heart score of 2. She was recently hospitalized and refused her heparin shots and had an elevated D-dimer greater than 2000. Blood work has been reviewed she is 2- troponins D-dimer 2118, WBC 5.9, hemoglobin 10.8 hematocrit 32.9 Sodium 137, potassium 4.0, chloride 105, carbon dioxide 20, BUN 12, creatinine 0.9, glucose 99 bilirubin 0.4 AST 25 ALT 17 alk-phos 138, troponin x2 negative Imaging has been reviewed chest x-ray and CT angio do not show any cardiopulmonary process EKG reviewed without ischemia Patient is a 68-year-old female presenting today with chest pain for 45 minutes while talking to her neighbor. She has a low risk heart score. she ruled out for pulmonary embolism despite hospitalization elevated D-dimer. She actually has an appointment with a primary care provider tomorrow. Her incision site on her abdomen appears dry slightly irritated with mild erythema but no concern for infection. At this time unclear what is causing her chest pain recommend possible further outpatient workup Discharge Plan Departure Patient Disposition: Home Clinical Impression: Atypical chest pain Instructions: DI for Atypical Chest Pain Activity Restrictions/Additional Instructions: *You have been diagnosed with atypical chest pain *What to do: At this time blood work is overall reassuring you CT did not show any sort of pulmonary embolism. You may require further cardiac testing such as echocardiogram and stress test. Please discuss this with your provider as scheduled tomorrow *Continue to take medications as directed *Follow up with your primary care provider in 2-3 days or call [phone] *Return to ER if you should have increasing chest pain shortness of or any new, worsening or concerning symptoms Prescriptions: No Action estradiol [Yuvafem] 10 mcg tablet 10 mcg vaginal 2XW levothyroxine 100 mcg tablet 100 mcg PO DAILY gabapentin 100 mg capsule 100 mg PO BID PRN bupropion HCl 100 mg tablet sustained-release 12 hr 100 mg PO BEDTIME acetaminophen 500 mg tablet 1,000 mg PO BID PRN Referrals: Yvette Cr MD [Primary Care Provider] - Stand Alone Forms: Patient Portal/API
[2024-01-24 20:17] LABS: Troponin I < 0.012 ng/mL (0.01-0.034)
== END 2024-01-24 20:49 | disposition home or self-care (01) ==
PROVIDERS: Emergency Medicine; Emergency Provider Emergency Medicine; PCP Family Medicine
DX: R07.89 Other chest pain (principal); R79.89 Other specified abnormal findings of blood chemistry
CPT/HCPCS: 71045; 71275; 80053; 82550; 83690; 83735; 83880; 84484; 85025; 85379; 85610; 85730; 93005; 99284; Q9967

== ENCOUNTER 2024-02-08 23:23 | Emergency (ER) | payer OTHER, SELFPAY ==
[2024-02-08 23:31] VITALS: BP 159/80; PULSE 82; RESP 16; TEMP 36.9; O2SAT 98; BMI 28.7
[2024-02-09 00:33] VITALS: BP 154/87; PULSE 85; RESP 18; O2SAT 98
[2024-02-09 01:00] VITALS: BP 135/75; PULSE 85; RESP 17; O2SAT 98
--- NOTE | 2024-02-09 01:11 | ED.GENADULT ---
HPI - General Adult General Chief complaint: Abdominal Pain Stated complaint: impacted Time Seen by Provider: 02/09/24 00:03 Mode of arrival: Ambulatory History of Present Illness HPI narrative: 68-year-old woman with a history of hypothyroidism, back surgery in early December with a brief stint in rehab post surgery. She notes that she has had intermittent episodes constipation throughout her life but after her spinal surgery with narcotic use it was significantly worse. At 1 point during her hospital admission she was given MiraLax, lactulose, magnesium citrate, docusate all of which were ineffective. She is down to a single oxycodone a day most. She has not had a bowel movement for approximately 5-6 days. She did try some manual disimpaction today but was not able to find any significant relief. She is having moderate tenesmus with associated pain and comes in for further evaluation. She has not noticed any bleeding, mild abdominal distention, mild nausea no vomiting. Related Data Home Medications Medication Instructions Recorded Confirmed acetaminophen 500 mg tablet 1,000 mg PO BID PRN 11/22/22 05/23/23 bupropion HCl 100 mg tablet,12 hr 100 mg PO BEDTIME 11/22/22 05/23/23 sustained-release gabapentin 100 mg capsule 100 mg PO BID PRN 11/22/22 05/23/23 levothyroxine 100 mcg tablet 100 mcg PO DAILY 11/22/22 05/23/23 estradiol 10 mcg vaginal tablet 10 mcg vaginal 2XW 03/03/23 05/23/23 (Yuvafem) Allergies Allergy/AdvReac Type Severity Reaction Status Date / Time ciprofloxacin Allergy Intermediate Rash Verified 01/24/24 15:42 Penicillins Allergy Intermediate Hives Verified 01/24/24 15:42 Sulfa (Sulfonamide Allergy Intermediate Rash Verified 01/24/24 15:42 Antibiotics) betamethasone Allergy Mild Anxiety Verified 01/24/24 15:42 hydrocodone Allergy Mild Gastrointestinal Verified 01/24/24 15:42 Upset meloxicam Allergy Mild Gastrointestinal Verified 01/24/24 15:42 Upset sertraline Allergy Mild Nausea Verified 01/24/24 15:42 Review of Systems Review of Systems Narrative: Pertinent positive and negative findings as per HPI Patient History Medical History Spinal stenosis, lumbar region with neurogenic claudication Tear meniscus knee Spondylolisthesis Spinal stenosis Depression Hypothyroidism Hyperparathyroidism High cholesterol Cervical disc disorder Arthritis Osteoporosis Surgical History Hx of appendectomy History of hernia surgery H/O knee surgery Social History Smoking Status: Former smoker Smoking Status: Former smoker alcohol intake frequency: holidays/special occasions only Substance Use Type: does not use Exam Initial Vital Signs Initial Vital Signs: Vital Signs Temperature 98.4 F 02/08/24 23:31 Pulse Rate 82 02/08/24 23:31 Respiratory Rate 16 02/08/24 23:31 Blood Pressure 159/80 H 02/08/24 23:31 Pulse Oximetry 98 02/08/24 23:31 Oxygen Delivery Method Room Air 02/08/24 23:31 General: Alert appropriate in no acute distress Respiratory: Able to speak in full sentences, no obvious respiratory distress Skin: No obvious rashes, warm and dry Neurologic: Grossly intact no obvious asymmetries or abnormalities Psych: appropriate insight and affect, cooperative Rectal exam: Moderate amount of firm stool in the vault. Manual bowel disimpaction is done at bedside. Course Vital Signs Vital signs: Vital Signs - 8 hr 02/08/24 23:31 02/09/24 00:33 02/09/24 01:00 Temperature 98.4 F Pulse Rate 82 85 85 Respiratory Rate 16 18 17 Blood Pressure 159/80 H 154/87 H 135/75 Pulse Oximetry 98 98 98 Oxygen Delivery Method Room Air Room Air Room Air 02/09/24 02:00 Temperature Pulse Rate 74 Respiratory Rate 18 Blood Pressure 122/75 Pulse Oximetry 99 Oxygen Delivery Method Room Air Medical Decision Making [facility] Narrative Medical decision making narrative: CC: Constipation Complicating co-morbidities: Recent spine surgery, still occasional opioid use Data collected from: patient Differential considered: Constipation, obstipation, bowel obstruction Exam documented above, pertinent findings include: She does not have an acute surgical abdomen. Moderate amount of firm stool quite a bit is removed at bedside. We will try an enema to see if we can get the remainder of stool through the left colon beginning to move prior to discharge Treatments: Manual disimpaction, enema Patient had a large volume stool after enema was administered. Was associated with moderate amount of pain as well as vasovagal symptoms and retching. Now that her bowels are moving she is feeling significantly improved, she is tolerating water, is safe for discharge. Discussion: 68-year-old woman with postsurgical, decreased activity and opioid induced constipation in the setting of chronic constipation. Moderate relief of symptoms. We will have her continue with at least 1 scoop of MiraLax daily and another in the evening if she has not had a bowel movement that day. There was no indication for blood work, advanced imaging or hospitalization at this time. She is tolerated procedures well. She is safe for discharge Discharge Plan Departure Patient Disposition: Home Clinical Impression: Constipation due to opioid therapy Instructions: DI for Constipation Activity Restrictions/Additional Instructions: Thank you for coming in today. I am sorry that you are continuing to suffer with his constipation Were able to manually disimpact moderate amount of stool. You were given an enema following this. I would recommend 1-2 scoops of MiraLax daily and more if you do not have a bowel movement that day. If you feel that you are getting worse or having new symptoms, please feel free to return to the ER Prescriptions: No Action estradiol [Yuvafem] 10 mcg tablet 10 mcg vaginal 2XW levothyroxine 100 mcg tablet 100 mcg PO DAILY gabapentin 100 mg capsule 100 mg PO BID PRN bupropion HCl 100 mg tablet sustained-release 12 hr 100 mg PO BEDTIME acetaminophen 500 mg tablet 1,000 mg PO BID PRN Referrals: Yvette Cr MD [Primary Care Provider] - Stand Alone Forms: Patient Portal/API
[2024-02-09 02:00] VITALS: BP 122/75; PULSE 74; RESP 18; O2SAT 99
[2024-02-09 03:02] VITALS: BP 130/87; PULSE 78; RESP 18; O2SAT 97
== END 2024-02-09 03:11 | disposition home or self-care (01) ==
PROVIDERS: Emergency Provider Emergency Medicine; PCP Family Medicine
DX: K59.03 Drug induced constipation (principal)
CPT/HCPCS: 99282; 99284

== ENCOUNTER → 2024-04-30 11:59 | Outpatient (CLI) | payer OTHER, SELFPAY ==
--- NOTE | 2024-04-30 12:02 | DI.RAD.S_ITS ---
PROCEDURE: XR LUMBAR SPINE 2-3V INDICATIONS: Arthrodesis status TECHNIQUE: 3 views of the lumbar spine were acquired. COMPARISON: Outside Facility, CR, XR LUMBAR SPINE 1V, 01/15/2024, 13:10. FINDINGS: Lumbar spine curvature and alignment: Normal. Bones: There are no osseous abnormalities. Disc spaces: Posterior fusion changes from L2 through L5 provided by pedicle screws and long rods . There also anterior L3-4 L4-5 fusion provided by interbody space appreciated. There is also anterior plate at L3-4. No complication from the surgical hardware Severe L2-3 degenerative disc disease noted. There is moderate L2-3 through L5-S1 degenerative facet disease. Soft tissues: No soft tissue swelling, calcification or mass. IMPRESSION: L3 through L5 fusion changes expected postoperative appearance. Dictated by: Darryl Daley M.D. on 05/01/2024 at 9:57 Approved by: Darryl Daley M.D. on 05/01/2024 at 9:59
== END ==
LOC: RAD 12:01
PROVIDERS: PCP Family Medicine; Referring Provider Neurological Surgery; Visit Provider Neurological Surgery
DX: M51.369 Other intervertebral disc degeneration, lumbar region without mention of lumbar back pain or lower extremity pain (principal); M47.816 Spondylosis without myelopathy or radiculopathy, lumbar region; M47.817 Spondylosis without myelopathy or radiculopathy, lumbosacral region; Z98.1 Arthrodesis status
CPT/HCPCS: 72100

== ENCOUNTER → 2024-07-01 12:45 | Outpatient (CLI) | payer OTHER, SELFPAY ==
--- NOTE | 2024-07-01 12:49 | DI.CT.S_ITS ---
PROCEDURE: CT LUMBAR SPINE WO CON INDICATIONS: S/P L2-S1 FUSION TECHNIQUE: Noncontrast 3 mm thick sections acquired from the T12 level to the sacrum. Sagittal and coronal reformats were constructed. For radiation dose reduction, the following was used: automated exposure control. COMPARISON: [facility], CT, CT LUMBAR SPINE WO CON, 08/04/2023, 13:29. Outside Facility, CT, CT LUMBAR SPINE WO CON, 01/06/2024, 10:36. FINDINGS: Image quality: Excellent. Bones: There is normal bony alignment. No acute vertebral body compression fractures. No suspicious lytic or blastic bony lesions. No pars defects. L3 and L4 decompressive laminectomies. Posterolateral fusion in the upper lumbar spine with discectomy and fusion at L3-4, L4-5 and L5-S1. Posterior jack and screw instrumentation extends from L2 through S1 with anterior plate and screw instrumentation at L3-4. interbody fusion at L2-3, L1-2: No central or foraminal stenosis. L2-3: Disc space narrowing and vacuum disc phenomena. Posterior decompression. No osseous central stenosis. Moderate right and mild left foraminal stenosis L3-4: Discectomy and fusion with decompression. No osseous central stenosis. Severe right foraminal stenosis associated with arthropathy and endplate spur with adjacent interbody cage. No left foraminal stenosis L4-L5: Discectomy and fusion. No osseous central stenosis. No foraminal stenosis. L5-S1: Discectomy and fusion. No osseous central stenosis. Soft tissues: No retroperitoneal masses or hematomas. Visualized aorta is normal in caliber. IMPRESSION: Lumbar spine multilevel instrumented discectomy and fusion with decompression as above. Severe right foraminal stenosis, similar to the prior Approved by: Marshall Garcia M.D. on 07/01/2024 at 17:48
== END ==
LOC: CT 12:47
PROVIDERS: PCP Family Medicine; Referring Provider Neurological Surgery; Visit Provider Neurological Surgery
DX: M48.061 Spinal stenosis, lumbar region without neurogenic claudication (principal); M47.816 Spondylosis without myelopathy or radiculopathy, lumbar region; Z98.1 Arthrodesis status
CPT/HCPCS: 36415; 72131; 80061

== ENCOUNTER → 2024-07-01 12:49 | Outpatient (CLI) | payer OTHER, SELFPAY ==
[2024-07-01 14:38] LABS: Cholesterol 207 mg/dL (140-199); HDL Cholesterol 105 mg/dL (40-60); LDL Cholesterol Calculated 82 mg/dL (<100); Triglycerides 100 mg/dL (35-150)
== END ==
LOC: LAB 12:50
PROVIDERS: PCP Family Medicine; Referring Provider Physician Assistant; Visit Provider Physician Assistant
DX: E78.5 Hyperlipidemia, unspecified (principal)
CPT/HCPCS: 36415; 80061

== ENCOUNTER → 2024-08-13 11:33 | Outpatient (CLI) | payer OTHER, SELFPAY ==
--- NOTE | 2024-08-13 11:34 | DI.MG.S_ITS ---
BILATERAL DIGITAL SCREENING MAMMOGRAM 3D/2D WITH CAD: 08/13/2024 CLINICAL: Routine screening. Family history of breast cancer. Comparison is made to exams dated: 08/04/2023 mammogram - [facility], 05/24/2021 mammogram - [facility], 07/27/2022 mammogram - [facility], 04/29/2020 mammogram, and 10/22/2018 mammogram - [facility]. The breasts are heterogeneously dense, which may obscure small masses (category c / 51-75% glandular tissue). Current study was also evaluated with a Computer Aided Detection (CAD) system. No significant masses, calcifications, or other findings are seen in either breast. There has been no significant interval change. IMPRESSION: NEGATIVE There is no mammographic evidence of malignancy. A 1 year screening mammogram is recommended. Based on the Tyrer Cuzick model (a risk assessment model) the patient's lifetime risk is 15.6% and her 10 year risk is 10.1%. According to the ACR, ACS, and NCCN guidelines, an annual breast MRI exam along with mammogram is recommended if the patient's lifetime risk is 20% or greater. This exam was interpreted at Station ID: [id number]. NOTE: For mammograms, a report in lay terms will be sent to the patient. Approximately 15% of breast malignancies will not be visualized mammographically. In the management of a palpable breast mass, a negative mammogram must not discourage biopsy of a clinically suspicious lesion. Electronically Signed By: Isrrael montaño/sherri:08/13/2024 12:52:38 letter sent: Normal Exam ACR BI-RADS Category 1: Negative
== END ==
PROVIDERS: PCP Family Medicine; Referring Provider Family Medicine; Visit Provider Family Medicine
DX: Z12.31 Encounter for screening mammogram for malignant neoplasm of breast (principal); Z80.3 Family history of malignant neoplasm of breast; R92.333 Mammographic heterogeneous density, bilateral breasts
CPT/HCPCS: 77063; 77067

== ENCOUNTER → 2024-11-01 13:36 | Outpatient (CLI) | payer OTHER, SELFPAY ==
--- NOTE | 2024-11-01 13:41 | DI.RAD.S_ITS ---
PROCEDURE: XR HIP W PEL IF DONE RT 2V INDICATIONS: Arthrodesis status TECHNIQUE: AP pelvis with lateral view(s) of the right hip(s). COMPARISON: None. FINDINGS: Bones: No fractures or dislocations. Moderate to severe right and [id number] left hip joint degeneration. Pelvic ring appears intact. No suspicious bony lesions. Partially visualized lower lumbar spine fixation hardware. Soft tissues: The visualized bowel gas pattern is normal. No suspicious soft tissue calcifications. IMPRESSION: Moderate to severe right and [id number] left hip joint degeneration. Dictated by: Delmar Saxena M.D. on 11/01/2024 at 14:51 Approved by: Delmar Saxena M.D. on 11/01/2024 at 14:51
== END ==
PROVIDERS: PCP Family Medicine
DX: M16.0 Bilateral primary osteoarthritis of hip (principal); Z98.1 Arthrodesis status
CPT/HCPCS: 73502

== ENCOUNTER → 2024-11-07 11:57 | Outpatient (CLI) | payer OTHER, SELFPAY ==
[2024-11-07 13:44] LABS: Vitamin B12 340 pg/mL (239-931)
== END ==
PROVIDERS: PCP Family Medicine; Referring Provider Family Medicine; Visit Provider Podiatrist
DX: D51.8 Other vitamin B12 deficiency anemias (principal)
CPT/HCPCS: 36415; 82607

== ENCOUNTER → 2025-01-13 11:23 | Outpatient (CLI) | payer OTHER, SELFPAY ==
--- NOTE | 2025-01-13 11:24 | DI.CT.S_ITS ---
PROCEDURE: CT LUMBAR SPINE WO CON INDICATIONS: S/P LUMBAR FUSION TECHNIQUE: Noncontrast 3 mm thick sections acquired from the T12 level to the sacrum. Sagittal and coronal reformats were constructed. For radiation dose reduction, the following was used: automated exposure control. COMPARISON: [facility], CR, XR LUMBAR SPINE 2-3V, 04/30/2024, 12:00. [facility], CT, CT LUMBAR SPINE WO CON, 07/01/2024, 12:51. FINDINGS: Image quality: Excellent. Bones: Stable lumbar spine postsurgical changes with L2-S1 PLIF anterior L3-L4 fixation and L3 laminectomy changes. Orthopedic hardware is stable in position and remains intact. New lucency at the left L2 transpedicular screw-bone interface concerning for loosening or infection. Stable lucencies adjacent to the bilateral S1 transpedicular screws-bone interface concerning for loosening. There is normal bony alignment. No acute vertebral body compression fractures. No suspicious lytic or blastic bony lesions. No pars defects. Spine degenerative disc disease and facet arthropathy. Severe right L3-L4 neural foraminal stenosis with compression of the right L3 nerve root is unchanged. No severe osseous central canal stenosis. Soft tissues: No retroperitoneal masses or hematomas. Visualized aorta is normal in caliber. IMPRESSION: Stable postsurgical changes. Lucencies adjacent to the left L2 and bilateral S1 transpedicular screws which could represent loosening or infection. Multilevel degenerative disc disease and facet arthropathy. No severe osseous central canal stenosis. Severe right L3-L4 neural foraminal stenosis with compression of the right L3 nerve root. Dictated by: Collette Steel MD, PhD on 01/14/2025 at 10:53 Approved by: Collette Steel MD, PhD on 01/14/2025 at 11:01
== END ==
LOC: CT 11:23
PROVIDERS: PCP Family Medicine; Referring Provider Physician Assistant Medical; Visit Provider Physician Assistant Medical
DX: M51.369 Other intervertebral disc degeneration, lumbar region without mention of lumbar back pain or lower extremity pain (principal); M47.816 Spondylosis without myelopathy or radiculopathy, lumbar region; M48.061 Spinal stenosis, lumbar region without neurogenic claudication; Z98.1 Arthrodesis status
CPT/HCPCS: 72131

== ENCOUNTER → 2025-01-31 14:47 | Outpatient (CLI) | payer OTHER, SELFPAY ==
[2025-01-31 18:20] LABS: Calcium 8.7 mg/dL (8.4-10.2)
== END ==
PROVIDERS: PCP Family Medicine; Referring Provider Internal Medicine Endocrinology, Diabetes & Metabolism; Visit Provider Internal Medicine Endocrinology, Diabetes & Metabolism
DX: M81.0 Age-related osteoporosis without current pathological fracture (principal)
CPT/HCPCS: 36415; 82310; 83970

== ENCOUNTER → 2025-03-17 11:39 | Outpatient (CLI) | payer OTHER, SELFPAY ==
[2025-03-17 13:03] LABS: Alanine Aminotransferase 32 IU/L (<35); Albumin 4.5 g/dL (3.5-5.0); Albumin Globulin Ratio 2.0 (1.0-2.8); Alkaline Phosphatase 75 U/L (38-126); Blood Urea Nitrogen 11 mg/dL (7-17); Calcium 8.9 mg/dL (8.4-10.2); Carbon Dioxide 28 mmol/L (22-32); Chloride 103 mmol/L (98-107); Estimated Glomerular Filt Rate > 60 mL/min (>60); Globulin 2.3 g/dL (1.7-4.1); Glucose 78 mg/dL (70-99); HEMOLYSIS < 15 (0-50); Potassium 4.3 mmol/L (3.4-5.1); Sodium 139 mmol/L (137-145); Total Protein 6.8 g/dL (6.3-8.2)
[2025-03-17 13:37] LABS: Thyroid Stimulating Hormone 0.686 uIU/mL (0.47-4.68)
== END ==
PROVIDERS: PCP Family Medicine; Referring Provider Family Medicine; Visit Provider Family Medicine
DX: E78.00 Pure hypercholesterolemia, unspecified (principal); E03.9 Hypothyroidism, unspecified; M81.0 Age-related osteoporosis without current pathological fracture
CPT/HCPCS: 36415; 80053; 84443